=== PATIENT | female | born 1980 | race Caucasian/White ===

== ENCOUNTER 2020-01-16 00:26 | Emergency (ER) | payer OTHER, SELFPAY ==
--- NOTE | ~2020-01-16 | XR_ITS ---
EXAMINATION: XR chest 2V DATE: 01/16/2020 00:57 INDICATION: Shortness of breath. Right-sided chest pain. TECHNIQUE: Frontal and lateral views of the chest were obtained. COMPARISON: Chest 2 views 10/26/2012 FINDINGS: There is mild atelectasis in lingula. No pleural effusion or pneumothorax. The heart size i s normal. IMPRESSION: 1. Mild atelectasis in lingula. Reviewed, dictated and finalized at location A.
[2020-01-16 00:39] VITALS: BP 127/79; PULSE 80; RESP 20; TEMP 36.3; O2SAT 93
--- NOTE | 2020-01-16 00:43 | ECG_ITS ---
Measurements Intervals [place] Rate: 80 P: 72 CA: 144 QRS: 48 QRSD: 94 T: 47 QT: 387 QTc: 448 Interpretive Statements SINUS RHYTHM MINIMAL Q WAVES- HIGH LATERAL LEADS BASELINE ARTIFACT- I, II, III, AVR, AVL, AVF, V4-V6 BORDERLINE ECG Electronically Signed On 01-16-2020 7:42:15 CDT by Mihir Page D.O.
--- NOTE | 2020-01-16 01:06 | ED.SOB ---
HPI - SOB/Dyspnea General Chief Complaint: Shortness of Breath/Dyspnea Stated Complaint: Shortness of Breath Source: patient Mode of arrival: ambulatory Limitations: no limitations History of Present Illness HPI Narrative: Pt staes that she started having pain in the right side of her back/shoulder/chest 5 days ago. 2 days ago she developed some SOB. she denies fevers chills nausea or vomiting. Tonight when she tried to lay down the CP was worse MD elicited complaint: shortness of breath and chest pain Onset (ago): day(s) Timing: constant Severity: severe Exacerbating factors: lying flat Relieving factors: nothing Associated symptoms: chest pain and pain with inspiration Treatment prior to arrival: none Related Data Home Medications Medication Instructions Recorded Confirmed No Home Medications 01/16/20 01/16/20 Allergies Allergy/AdvReac Type Severity Reaction Status Date / Time No Known Allergies Verified 07/14/09 12:29 Review of Systems Constitutional: Constitutional: Reports no additional constitutional complaints Eyes: Eyes: Reports no additional eye complaints ENT: Denies dysphagia, Denies vertigo, Denies dizziness, Denies epistaxis, Denies nasal congestion and Denies sore throat Cardiovascular: Cardiovascular: Reports chest pain, Denies rapid heart rate, Denies radiating jaw, neck or arm pain and Denies slow heart rate Respiratory: Respiratory: Denies chest congestion, Denies cough, Reports dyspnea and Reports wheezing Gastrointestinal: Gastrointestinal: Denies abdominal pain, Denies bloating, Denies constipation, Denies heartburn, Denies diarrhea, Denies nausea and Denies vomiting Genitourinary: Genitourinary: Denies abnormal vaginal bleeding, Denies hematuria, Denies nocturia, Denies genital lesions, Denies dysuria, Denies pelvic pain, Denies flank pain, Denies urinary incontinence and Denies vaginal discharge Musculoskeletal: Musculoskeletal: Reports back pain, Denies myalgias, Denies arthralgias, Denies joint swelling and Denies muscle cramps Integumentary/Breasts: Skin/Breast: Reports system reviewed and no additional complaints, except as docu Neurologic: Reports system reviewed and no additional complaints, except as documented Psychiatric: Psychiatric: Reports no additional psychiatric complaints Endocrine: Endocrine: Reports no additional endocrine complaints Hematologic/Lymphatic: Hematologic/Lymphatic: Reports no additional hematologic/lymphatic complaints Allergic/Immunologic: Allergic/Immunologic: Reports no additional allergic/immunologic complaints [facility] Social History Social History (Updated 01/16/20 @ 01:16 by Siomara Deras MD) Smoking status: Current every day smoker Alcohol intake: current Substance use: current Substance use type: marijuana Exam Const: General: healthy appearing, no acute distress and alert Nutritional Appearance: well nourished Orientation/consciousness: patient oriented x3 HENMT: Head: normal to inspection Eyes: Conjunctivae: conjunctivae normal Pupils: Equal, round and reactive pupils present Neck: Neck: normal visual inspection and no lymphadenopathy Chest: Chest palpation & inspection: normal inspection of the chest Resp: Effort & Inspection: normal respiratory effort and tachypneic Auscultation: clear to auscultation bilaterally Cardio: Rate: regular rate Rhythm: regular rhythm GI: Inspection: non-distended GI Palp: Yes Soft to palpation, No Tenderness to palpation present (GI) and No Guarding due to palpation present (GI) Auscultation: normal bowel sounds : General: Yes no CVA tenderness Back/Spine/Pelvis: Back: no CVA tenderness Skin: General skin exam: normal color Neuro: General: patient oriented x3 and moves all extremities Speech: normal speech Extrem: General: normal to inspection Psych: Mental Status: mental status grossly normal Affect: Anxious affect present Thought content: Yes Normal thought c
[2020-01-16] MEDS: KETOROLAC 30 MG/ML VIAL (*BKC) IV PUSH (01:19)
[2020-01-16 01:20] VITALS: PULSE 84; RESP 20
[2020-01-16] MEDS: ALBUTEROL SULFATE (*SP) INHALER 8 PUFF INHALATION (01:20)
[2020-01-16 01:40] VITALS: PULSE 84; RESP 20
[2020-01-16 01:40] LABS: Basophils Absolute Auto 0.04 K/mm3 (0.00-0.10); Basophils Percent Auto 0.4 % (0.0-1.0); Eosinophils Absolute Auto 0.12 K/mm3 (0.02-0.50); Eosinophils Percent Auto 1.2 % (1.0-6.0); Hematocrit 40.2 % (35.0-49.0); Hemoglobin 13.9 g/dL (12.0-15.0); Immature Granulocyte Absolute 0.06 K/mm3 (0.00-0.00); Immature Granulocyte Percent A 0.6 % (0.0-0.0); Lymphocytes Absolute Auto 1.96 K/mm3 (1.10-4.50); Lymphocytes Percent Auto 18.9 % (18.0-42.0); Mean Corpuscular HGB Conc 34.6 g/dL (32.0-36.0); Mean Corpuscular Hemoglobin 32.7 pg (27.0-31.0); Mean Corpuscular Volume 94.6 fL (78.0-102.0); Mean Platelet Volume 9.9 fl (9.2-11.8); Monocytes Absolute Auto 0.63 K/mm3 (0.10-0.90); Monocytes Percent Auto 6.1 % (2.0-11.0); Neutrophils Absolute Auto 7.6 K/mm3 (1.7-7.2); Neutrophils Percent Auto 72.8 % (50.0-70.0); Platelet Count Result 256 K/mm3 (150-420); Red Blood Count 4.25 M/mm3 (4.20-5.40); Red Cell Distribution Width 11.9 % (11.6-14.4); White Blood Count 10.4 K/mm3 (4.8-10.8)
[2020-01-16 01:52] LABS: D Dimer 0.19 mg/L (0.19-0.50)
[2020-01-16 01:58] LABS: Alanine Aminotransferase 29 U/L (14-59); Albumin Level 3.9 g/dL (3.4-5.0); Alkaline Phosphatase 64 U/L (46-116); Anion Gap 15.7 mmol/L (7-16); Aspartate Amino Transferase 19 U/L (15-37); Bilirubin,Total 0.6 mg/dL (0.00-1.00); Blood Urea Nitrogen 10 mg/dL (7-18); Calcium 8.5 mg/dL (8.5-10.1); Carbon Dioxide 24 mmol/L (21-32); Chloride 101 mmol/L (98-108); Estimated CRCL calculation 88 ml/min; Estimated Glomerular Filt Rate > 60; Glucose 88 mg/dL (70-99); Osmolality Calculated 282 mOsm/kg (285-295); Potassium 3.7 mmol/L (3.5-5.1); Sodium 137 mmol/L (136-145); Total Protein 7.3 g/dL (6.4-8.2)
[2020-01-16 01:59] LABS: Troponin I < 0.02 ng/mL (0.00-0.056)
[2020-01-16 02:24] VITALS: BP 130/80; PULSE 84; RESP 20; TEMP 36.4; O2SAT 98
[2020-01-17 00:19] LABS: SARS-CoV-2 RNA PCR Negative
== END 2020-01-16 02:34 | disposition home or self-care (01) ==
PROVIDERS: Emergency Provider Emergency Medicine; PCP Family Medicine
DX: R07.89 Other chest pain (principal)
CPT/HCPCS: 36415; 71046; 80053; 84484; 85025; 85380; 87635; 93005; 94640; 96374; 99284; A9270; C9803; J1885; U0003

== ENCOUNTER 2020-08-02 13:23 | Emergency (ER) | payer OTHER, SELFPAY ==
[2020-08-02 13:30] VITALS: BP 113/78; PULSE 84; RESP 20; TEMP 36.3; O2SAT 97
[2020-08-02] MEDS: LIDOCAINE HCL 1% LOCAL INJ 20 ML VIAL (13:40)
[2020-08-02] MEDS: TETANUS,DIPHTHERIA,AC PERTUSSIS ADULT 0.5 ML (ADACEL) IM (13:45)
--- NOTE | 2020-08-02 13:59 | ED.WOUNDLAC ---
HPI - Wound/Laceration General Stated Complaint: L pinky lac Source: patient Mode of arrival: ambulatory Limitations: no limitations History of Present Illness HPI narrative: this is a 39-year-old female that presents after she smashed her finger earlier today causing a flap like right laceration to the fat pad of her 5th left finger has good range of motion and no numbness or tingling currently no bleeding. Onset (ago): hour(s) Extremity Location: Left: hand ( 5th finger distal end with laceration) Place: home Patient tetanus UTD: No Context: accidental Associated symptoms: pain Related Data Home Medications Medication Instructions Recorded Confirmed No Home Medications 01/16/20 01/16/20 Allergies Allergy/AdvReac Type Severity Reaction Status Date / Time No Known Allergies Verified 07/14/09 12:29 Review of Systems Review of Systems: All systems reviewed & are unremarkable except as noted in HPI and below PMFSH Past Medical History Medical History Patient denies medical problems Social History Social History Smoking status: Current every day smoker Alcohol intake: current Substance use: current Substance use type: marijuana Exam Const: General: no acute distress Orientation/consciousness: patient oriented x3 HENMT: Head: normal to inspection Eyes: Conjunctivae: conjunctivae normal Neck: Neck: normal visual inspection and no lymphadenopathy Chest: Chest palpation & inspection: normal inspection of the chest Cardio: Rate: regular rate Rhythm: regular rhythm GI: GI Palp: Yes Soft to palpation Percussion: Yes normal to percussion Back/Spine/Pelvis: Back: no CVA tenderness Skin: General skin exam: normal color Other: flap like laceration to the left 5th finger in the fat pad approximately 2cm in length Neuro: General: patient oriented x3 and moves all extremities Psych: Appearance: grossly normal Mental Status: mental status grossly normal Course Course Emergency Course: patient updated with her tetanus, finger she says she can move it with no numbness or tingling declined any x-rays, did laceration repair on the left distal 5th finger. Procedures Laceration Laceration 1: Date: 08/02/20 Time: 14:02 Site: hand ( Left 5th finger) Side (If applicable): left Size (cm): 2 Description: flap and irregular Depth: simple, single layer Local Anesthetic: lidocaine 1% Amount of anesthesia used (mL): 3 Pre-repair: wound explored and irrigated ====== Skin Level ====== Skin layer closed with: vicryl Size (cm): 5-0 Number of sutures: 5 Technique: simple, interrupted ====== Subcutaneous Layer ====== ====== Muscle Layer ====== ====== Tendon Layer ====== Critical Care Time Critical Care Time Critical Care Time: No Discharge Plan Discharge Clinical Impression: Laceration Patient Disposition: Home, Self-Care Condition: Stable Instructions: Antibiotic Form, Laceration (ED) Additional Instructions: Tylenol Motrin for pain, and follow-up with primary care physician in 1 week for suture removal. Prescriptions: No Action No Home Medications RF: 0 Follow-up/Referrals: Crow Fried MD [Primary Care Provider] - Time of Disposition: 14:04
[2020-08-02 14:11] VITALS: BP 120/78; PULSE 84; RESP 20; TEMP 36.6; O2SAT 97
== END 2020-08-02 14:15 | disposition home or self-care (01) ==
PROVIDERS: Emergency Provider Emergency Medicine; PCP Family Medicine
DX: S61.217A Laceration without foreign body of left little finger without damage to nail, initial encounter (principal); W45.8XXA Other foreign body or object entering through skin, initial encounter
CPT/HCPCS: 12001; 90471; 90715; 99282

== ENCOUNTER 2023-10-10 01:55 | Emergency (ER) | payer OTHER, SELFPAY ==
[2023-10-10] VITALS (7 sets, daily range): BP systolic 114–146; BP diastolic 66–106; PULSE 56–87; RESP 13–20; TEMP 36.4; O2SAT 90–97
--- NOTE | ~2023-10-10 | CT_ITS ---
Clinical Indication: Pain CT Scan of the Chest, Abdomen, and Pelvis with Contrast: Technique: Contiguous sections were acquired throughout the chest, abdomen, and pelvis after intraven ous administration of 100 cc of Omnipaque 350. Dose reduction technique was used on this scan by bradley lowery automated exposure control and iterative reconstruction technique. The dose-length product (DL P) was 738.83 mGy-cm. Findings: There is no evidence of any significant mediastinal, hilar or axillary lymphadenopathy. The mediastin al soft tissues and vascular structures appear normal. There is no evidence of pleural or pericardial effusion. 5 mm right lower lobe pulmonary nodule present (axial image 54). 4 mm right middle lobe pulmonary nod ule present (axial image 64). Several additional 4 to 5 mm right basilar pulmonary nodule present (ax ial image 80, 90, 96). 4 mm left basilar pulmonary nodule present (axial image 91). 4 mm left upper l obe pulmonary nodule present (axial image 66). The liver, spleen, pancreas, gallbladder, adrenals and kidneys are within normal limits. No evidence of aortic aneurysm. 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 No lymphadenopathy. No bowel obstruction or bowel wall thickening. There is no evidence to suggest acute appendicitis. Urinary bladder is unremarkable. No adnexal mass seen. No ascites. 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 Recommend vascular surgery and/or intervention al radiology consultation to assess for treatment. Multiple pulmonary nodules measuring up to 5 mm, as detailed above. According to Fleischner Society c rangel, for a low-risk patient, no further follow-up required. For a high-risk patient, consider 12 month follow-up CT. Reviewed, dictated and finalized at location . 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 Recommend vascular surge ry and/or interventional radiology consultation to assess for treatment. Multiple pulmonary nodules measuring up to 5 mm, as detailed above. According t o Fleischner Society criteria, for a low-risk patient, no further follow-up req uired. For a high-risk patient, consider 12 month follow-up CT.
--- NOTE | 2023-10-10 02:17 | ED.ABDPAIN ---
HPI - Abdominal Pain General Chief Complaint: Abdominal Pain Stated Complaint: Abdominal pain Time Seen by Provider: 10/10/23 02:09 Source: patient and family Mode of arrival: ambulatory Limitations: no limitations History of Present Illness HPI narrative: 42 years old white female came to the ED with her from home by private car complaining of severe left upper quadrant pain and left lower ribs pain started 1 week ago, gradually getting worse, associated with nausea. She denies any fever, chills, vomiting. Pain gets worse with movement, certain position and taking deep breath, nothing make it better. History of anxiety, depression, patient smokes cigarettes, marijuana and drink alcohol almost daily. Patient had a new puppy over the last few days with a lot of new physical activities including lifting and bending. No history of abdominal surgery. Related Data Home Medications Medication Instructions Recorded Confirmed alprazolam 1 mg tablet 1 mg PO DIRECTED 08/02/20 10/10/23 escitalopram oxalate 20 mg tablet 20 mg PO DAILY 10/10/23 10/10/23 Allergies Allergy/AdvReac Type Severity Reaction Status Date / Time No Known Allergies Verified 10/10/23 03:28 Review of Systems Review of Systems: All systems reviewed & are unremarkable except as noted in HPI and below PMFSH Past Medical History Medical History Patient denies medical problems Social History Social History Smoking status: Current every day smoker Alcohol intake: current Substance use: current Substance use type: marijuana Exam Narrative: General appearance: Well-developed, well-nourished In pain Skin: Normal color Head: Normocephalic, nontraumatic Eyes: Clear conjunctiva ENT: Oropharynx normal, ears normal, nose normal Neck: Supple, nontender Chest and respiratory: Airway patent, no respiratory distress, no accessory muscle use Heart: Regular rate/rhythm Abdomen: Soft, severe tenderness left upper quadrant and left lower ribs with light palpation, no bruises, no rash, no organomegaly, quiet bowel sounds Vascular: Normal peripheral pulses, normal capillary refill. Musculoskeletal: Normal range of motion, nontender back Neurologic: Alert and oriented ?3, EQUITY RESEARCH ANALYST is normal as tested, no gross motor deficit Course Vital Signs Vital signs: Vital Signs Temperature 36.4 C 10/10/23 01:55 Pulse Rate 87 10/10/23 01:55 Respiratory Rate 20 10/10/23 01:55 Blood Pressure 146/106 H 10/10/23 01:55 Pulse Oximetry 97 10/10/23 01:55 Oxygen Delivery Room Air 10/10/23 01:55 Temperature 36.4 C 10/10/23 01:55 Pulse Rate 87 10/10/23 01:55 Respiratory Rate 20 10/10/23 01:55 Blood Pressure 146/106 H 10/10/23 01:55 Pulse Oximetry 97 10/10/23 01:55 Oxygen Delivery Room Air 10/10/23 01:55 MDM - Abdominal Pain MDM Narrative Medical decision making narrative: patient presents with left upper quadrant and left lower chest pain started few days ago, got worse prior to arrival to the ED. 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 Usually the celiac and resume causing central pain, patient presented is questionable secondary to that aneurysm. Transferred to [facility], vascular surgery for further ev
[2023-10-10] MEDS: ONDANSETRON INJ 4 MG/2 ML VIAL IV PUSH ×2 (02:19→03:36)
[2023-10-10] MEDS: HYDROmorphone HCL INJ (*CRX) 2 MG/ML VIAL 0.5 MG IV PUSH ×3 (02:19→05:16)
[2023-10-10 02:20] LABS: Basophils Absolute Auto 0.04 K/mm3 (0.00-0.10); Basophils Percent Auto 0.5 % (0.0-1.0); Eosinophils Absolute Auto 0.17 K/mm3 (0.02-0.50); Eosinophils Percent Auto 2.2 % (1.0-6.0); Hematocrit 43.3 % (35.0-49.0); Hemoglobin 14.8 g/dL (12.0-15.0); Immature Granulocyte Absolute 0.03 K/mm3 (0.00-0.00); Immature Granulocyte Percent A 0.4 % (0.0-0.0); Lymphocytes Absolute Auto 3.49 K/mm3 (1.10-4.50); Lymphocytes Percent Auto 44.9 % (18.0-42.0); Mean Corpuscular HGB Conc 34.2 g/dL (32-36); Mean Corpuscular Volume 96.7 fL (78.0-102.0); Mean Platelet Volume 9.7 fl (9.2-11.8); Monocytes Absolute Auto 0.62 K/mm3 (0.10-0.90); Neutrophils Absolute Auto 3.42 K/mm3 (1.70-7.20); Platelet Count Result 261 K/mm3 (150-420); Red Blood Count 4.48 M/mm3 (4.20-5.40); Red Cell Distribution Width 12.1 % (11.6-14.4); White Blood Count 7.8 K/mm3 (4.8-10.8)
[2023-10-10] MEDS: SODIUM CHLORIDE 0.9% IV 1,000 ML 999 ML IV CONT (02:20)
[2023-10-10 02:30] LABS: INR 0.9; Partial Thromboplastin Time 23.4 Sec (23.9-30.70); Prothrombin Time 9.9 Seconds (9.50-12.1)
[2023-10-10 02:31] LABS: Alanine Aminotransferase 59 U/L (14-59); Alkaline Phosphatase 70 U/L (46-116); Anion Gap 11 mmol/L (4-12); Aspartate Amino Transferase 65 U/L (15-37); Bilirubin,Total 0.3 mg/dL (0.00-1.00); Blood Urea Nitrogen 15 mg/dL (7-18); Calcium 8.4 mg/dL (8.5-10.1); Carbon Dioxide 27 mmol/L (21-32); Chloride 100 mmol/L (98-108); Estimated Glomerular Filt Rate > 60; Glucose 103 mg/dL (70-99); Lipase 18 U/L (16-77); Osmolality Calculated 286 mOsm/kg (285-295); Potassium 3.9 mmol/L (3.5-5.1); Sodium 138 mmol/L (136-145); Total Protein 7.6 g/dL (6.4-8.2)
[2023-10-10] MEDS: KETOROLAC 30 MG/ML VIAL (*BKC) IV PUSH (03:53)
[2023-10-10 03:59] LABS: Bilirubin Urine Negative (Negative); Blood Urine 2+ (Negative); Color Urine Yellow (Yellow); Glucose Urine UA Negative (Negative); Ketones Urine 1+ (Negative); Leukocyte Esterase Ur Negative LEU/UL (Negative); Nitrate Urine Negative (Negative); Protein Urine Negative (Negative); Specific Grav Ur <= 1.005 (1.010-1.020); Urobilinogen Urine 0.2 mg/dL (0.2-1.0)
[2023-10-10 04:04] LABS: Pregnancy On Board Control Positive; Urine Pregnancy Test Negative
[2023-10-10 04:05] LABS: Add Urine Microscopic? YES; Amorphous Sediment Urine Few; Appearance Urine Sl Cloudy (Clear); Bacteria Urine 1+ /hpf; RBC Urine 0-2 /hpf (0-2); Squamous Epithelial Cell Urine Many /hpf (Few)
== END 2023-10-10 05:21 | disposition short-term general hospital (02) ==
PROVIDERS: Emergency Provider Emergency Medicine; PCP Family Medicine
DX: I72.8 Aneurysm of other specified arteries (principal); F41.8 Other specified anxiety disorders; F17.210 Nicotine dependence, cigarettes, uncomplicated; R10.12 Left upper quadrant pain
CPT/HCPCS: 36415; 71260; 74177; 80053; 81001; 81025; 83690; 85025; 85610; 85730; 96361; 96374; 96375; 96376; 99285; J1170; J1885; J2405; J7030; Q9967

== ENCOUNTER 2024-09-27 10:13 | Outpatient (CLI) | payer OTHER, SELFPAY ==
--- NOTE | ~2024-09-27 | CT_ITS ---
CLINICAL INDICATION: Abdominal pain COMPARISON: 10/10/2023. TECHNIQUE: An enhanced CT of the abdomen and pelvis was performed utilizing multislice spiral TechZel ue reconstructed at 5 mm slice thickness. Coronal and sagittal reconstructions were performed. This CT examination was performed utilizing dose reduction techniques. 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 Redemonstration of a 4.5 mm nodule within the right middle lobe (axial series, image 62) unchanged fr om prior (axial series, image 60) performed one year earlier. Redemonstration of a 5.3 mm nodule within the left lower lobe (axial series, image 86 unchanged from prior (axial series, image 91) performed one year earlier. Remaining pulmonary nodules have either decreased in size from prior or are less conspicuous overall. The lungs are clear The heart is of normal size, without pericardial effusion. Mediastinum: No pathologically enlarged or morphologically suspicious lymph nodes are identified within the medias tinum, bilateral axilla, within the soft tissues of the anterior chest wall. Soft tissues of the chest: Unremarkable. Bones of the chest: No acute fracture. No lytic or blastic lesions are identified. Liver: The liver enhances homogeneously and is not enlarged . Gallbladder and biliary system: The gallbladder is more minimally distended, but otherwise unremarkable. Pancreas: The pancreas enhances homogeneously, without ductal dilatation. Spleen: Spleen enhances homogeneously and is not enlarged. Kidneys: The bilateral kidneys enhance symmetrically without hydronephrosis or renal calculi. Adrenal glands: Unremarkable. Gastrointestinal tract: Small hiatal hernia is present. Appendix: The air-filled appendix is of normal caliber (axial series, images 178 through 192). Vasculature: Postoperative change is identified surrounding the proximal celiac artery. No recurrent or residual aneurysmal dilatation is appreciated. Examination was not performed as a CTA rendering visualization of the peripheral branches of the jorge ac axis limited. The superior mesenteric artery is patent, and without aneurysmal dilatation. The inferior mesenteric artery is diminutive, patent, and without aneurysmal dilatation. Lymph nodes: Scattered nonpathologically enlarged lymph nodes within the root of the mesentery and deep in the pel vis. Pelvic structures: The bladder is minimally distended and otherwise unremarkable. The uterus is anteverted and anteflexed, and otherwise unremarkable Body wall and musculoskeletal: Small fat-containing umbilical and paraumbilical hernia. No significant degenerative disease within the thoracic or lumbosacral spines IMPRESSION: Postoperative change within the mesenteric vasculature (as detailed above) without contrast enhanced evidence of residual or recurrent dilatation. 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 Consultation with thoracic surgery may be performed. Stable bilateral pulmonary nodules for which follow-up as per Fleischner guidelines is recommended (r epeat noncontrast chest CT in one years' time to confirm resolution or stability). Reviewed, dictated and finalized at location A. IMPRESSION: Postoperative change within the mesenteric vasculature (as detailed above) with out contrast enhanced evidence of residual or recurrent dilatation. 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 Consultati on with thoracic surgery may be performed. Stable bilateral pulmonary nodules for which follow-up as per Fleischner guidel shashank is recommended (repeat noncontrast chest CT in one years' time to confirm resolution or stability).
[2024-09-27 10:28] LABS: Basophils Absolute Auto 0.05 K/mm3 (0.00-0.10); Basophils Percent Auto 0.6 % (0.0-1.0); Eosinophils Absolute Auto 0.07 K/mm3 (0.02-0.50); Eosinophils Percent Auto 0.8 % (1.0-6.0); Hematocrit 41.9 % (35.0-49.0); Hemoglobin 13.8 g/dL (12.0-15.0); Immature Granulocyte Absolute 0.03 K/mm3 (0.00-0.00); Immature Granulocyte Percent A 0.4 % (0.0-0.0); Lymphocytes Absolute Auto 2.55 K/mm3 (1.10-4.50); Lymphocytes Percent Auto 29.9 % (18.0-42.0); Mean Corpuscular HGB Conc 32.9 g/dL (32-36); Mean Corpuscular Hemoglobin 31.9 pg (27.0-31.0); Mean Corpuscular Volume 96.8 fL (78.0-102.0); Mean Platelet Volume 9.1 fl (9.2-11.8); Monocytes Absolute Auto 0.55 K/mm3 (0.10-0.90); Monocytes Percent Auto 6.4 % (2.0-11.0); Neutrophils Absolute Auto 5.29 K/mm3 (1.70-7.20); Neutrophils Percent Auto 61.9 % (50.0-70.0); Platelet Count Result 283 K/mm3 (150-420); Red Blood Count 4.33 M/mm3 (4.20-5.40); Red Cell Distribution Width 12.2 % (11.6-14.4); White Blood Count 8.5 K/mm3 (4.8-10.8)
[2024-09-27 10:49] LABS: Alanine Aminotransferase 33 U/L (14-59); Alkaline Phosphatase 92 U/L (46-116); Amylase 23 U/L (25-115); Anion Gap 8 mmol/L (4-12); Aspartate Amino Transferase 17 U/L (15-37); Bilirubin Direct 0.2 mg/dL (0-0.2); Bilirubin,Total 0.6 mg/dL (0.00-1.00); Blood Urea Nitrogen 8 mg/dL (7-18); Calcium 8.8 mg/dL (8.5-10.1); Carbon Dioxide 32 mmol/L (21-32); Chloride 101 mmol/L (98-108); Estimated Glomerular Filt Rate > 60; Glucose 96 mg/dL (70-99); Lipase 24 U/L (16-77); Osmolality Calculated 290 mOsm/kg (285-295); Potassium 4.1 mmol/L (3.5-5.1); Sodium 141 mmol/L (136-145); Total Protein 7.8 g/dL (6.4-8.2)
--- OUTSIDE RECORDS SUMMARY | 2024-09-27 10:59 | XMS_ITS | Clinical Summary ---
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 Gender Identity Not on file Sexual Orientation Not on file Plan of Treatment Health Maintenance Due Date Last Done Comments Cervical Cancer Screening Pa p Smear (Age 30 to 64) Every 3 Years 1982 Annual Physical 1985 Hepatitis C 2000 DTaP, Tdap and Td Vaccines ( 1 - Tdap) 2001 Hepatitis B Vaccines (1 of 3 - 19+ 3-dose series) 2001 Cervical Cancer Screening Pa p with HPV Testing (Age 30 to 64) Every 5 Years 2012 Cervical Cancer Screening with HPV 2012 Mammogram Screening 2022 COVID-19 Vaccine (2023-2 5 season) 2024 HPV Vaccines Aged Out No longer eligi ble based on patient's age to complete this topic Meningococcal B Vaccine Aged Out No l onger eligible based on patient's age to complete this topic Meningococcal Vaccine Aged Out No alvino lukasz eligible based on patient's age to complete this topic Pneumococcal Vaccine: Pediat rics (0 to 5 Years) and At-Risk Patients (6 to 64 Years) Aged Out No longer eligible b ased on patient's age to complete this topic RSV Immunizations Under 20 Months Aged Out No longer eligible based on patient's age to complete this topic
--- OUTSIDE RECORDS SUMMARY | 2024-09-27 10:59 | XMS_ITS | Clinical Summary ---
Author Organization [facility] Address [address] [place] [address] Care Team Providers Care Armored Car Guard And Driver Name Role Phone Unavailable Primary Care Provider Unavailabl e Source Comments [facility],non-owned Affiliates and Associated Physician Practices is amultiple site organization consisting of ambulatory clinics and hospital sitesin [place], [place], [place] and [place]. This disclosure is being madepursuant to the Care Everywhere program and may not contain all information available regarding this patient. Last updated 18.[facility] Social History Tobacco Use Types Packs/Day Years Used Date Smoking Tobacco: Never Assessed Sex and Gender Information Value Date Recorded Sex Assigned at Not on file Gender Identity Not on file Sexual Orientation Not on file Plan of Treatment Health Maintenance Due Date Last Done Comments LIPID TESTING 1982 MAMMOGRAM 1982 PAP SMEAR 1982 HIV SCREENING 1997 HEPATITIS C SCREENING 10/29/2000 DTAP/TDAP/TD VACCINES (1 - Tdap) 2001 HEPATITIS B VACCINE (1 of 3 - 19+ 3-dose series) 2001 COVID-19 VACCINE (2023-2 5 season) 2024 DEPRESSION SCREENING 06/27/2024 INFLUENZA VACCINE (Season Ended) 2025 ZOSTER VACCINE (1 of 2) 2032 HIB VACCINE Aged Out No longer eligi ble based on patient's age to complete this topic HPV VACCINE Aged Out No longer eligi ble based on patient's age to complete this topic MENINGOCOCCAL (Group B) VACC INE SHARED DECISION-MAKING Aged Out No longer eligibl e based on patient's age to complete this topic MENINGOCOCCAL GROUPS A/C/Y/W VACCINE Aged Out No longer eligible b ased on patient's age to complete this topic PNEUMOCOCCAL VACCINE Aged Out No long er eligible based on patient's age to complete this topic
--- OUTSIDE RECORDS SUMMARY | 2024-09-27 10:59 | XMS_ITS | Clinical Summary ---
Author Organization [facility] Address [address] [place] [address] Care Team Providers Care Flight Crew Time Clerk Name Role Phone Crow Fried MD Primary Care Provide r Miki Bronson MD Unavailable [phone] Allergies No known active allergies Medications ALPRAZolam (XANAX) 1 mg tablet Take 1 tablet (1 mg total) by mouth nightly as needed for anxiety Active escitalopram (LEXAPRO) 20 mg tablet Take 1 tablet (20 mg total) by mouth daily Active acetaminophen 500 mg capsuleIndicati ons:Fever,Pain Take 2 capsules (1,000 mg total) by mouth every 6 (six) hours 4 Active aspirin 325 mg enteric coated tablet Take 1 tablet (325 mg total) by mouth daily 30 tablet 2 4 10/14/19 25 Active cyclobenzaprine (FLEXERIL) 10 mg tablet Take 1 tablet (10 mg total) by mouth 3 (three) times a day as needed for muscle spasms 30 tablet 4 Active Additional Information Patient not taking.Reported on 11/16/2023 oxyCODONE (ROXICODONE) 10 mg tabletIndicatio ns:Pain Take 1 tablet (10 mg total) by mouth every 4 (four) hours as needed for pain 25 tablet 4 Active Additional Information Patient not taking.Reported on 11/16/2023 Active Problems Problem Noted Date Diagnosed Date Hallucinations 10/14/2023 Assessment & Plan (10/14/2023 8:03 AM CDT): Patient with hallucinations overnight on 10/12. 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 Will re-eval mental status later before considering discharge Anxiety 10/11/2023 Assessment & Plan (10/14/2023 6:23 AM CDT): Hx of anxiety/depression on home Lexapro and xanax. - Resume home regimen Acute postoperative pain of abdomen 10/10/2023 Assessment & Plan (10/14/2023 8:01 AM CDT): Patient presented to the hospital with abdominal pain, diagnosed with celiac artery aneurysm as below. S/p repair. 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 CT with 3.7cm celiac artery aneurysm. - OR 10/10 for Shay hepatis exploration, resection of celiac artery aneurysm, transposition of the splenic artery onto the celiac artery, transposition of the common hepatic artery onto the splenic artery - NGT removed on 10/12. BM x2. Cont bowel reg and encourage OOB - Pain control as above but better controlled today - PT/OT cleared for home -switch ASA to oral - Daily CMP. Pulmonary nodule 10/10/2023 Assessment & Plan (10/14/2023 6:25 AM CDT): CT scan with incidental finding of pulmonary nodules - Rec follow up CT in 12 months Social History Tobacco Use Types Packs/Day Years Used Date Smoking Tobacco: Every Day Cigarettes Smokeless Tobacco: Never Tobacco Cessation:Ready to Q uit: Not Asked; Counseling Given: Not Answered Personal Safety Answer Date Recorded Have you ever been in or are you currently in a harmful physical or emotional relationship or is someone making you feel afraid or unsafe? Denies 10/11/2023 Comments Unknown Sex and Gender Information Value Date Recorded Sex Assigned at Not on file Legal Sex Female 4:06 AM CDT Gender Identity Not on file Sexual Orientation Not on file Obstetrics History Last Filed Vital Signs Vital Sign Reading Time Taken Comments Blood Pressure 119/85 11/16/2023 8:14 AM CDT Pulse 80 11/16/2023 8:14 AM CDT Temperature 36.8 C (98.3 F) 11/16/2023 8:14 AM CDT Respiratory Rate 20 10/14/2023 11:39 AM CDT Oxygen Saturation 97% 11/16/2023 8:14 AM CDT Inhaled Oxygen Concentration - - Weight 86.2 kg (190 lb) 11/16/2023 8:14 AM CDT Height 162.6 cm (5' 4 ) 10/10/2023 4:45 PM CDT Body Mass Index 32.61 10/10/2023 4:45 PM CDT Plan of Treatment Health Maintenance Due Date Last Done Comments Breast Cancer Screening-Mammogram 1982 Cervical Cancer Screening 1982 Depression Screening 1982 Hepatitis C Screening 1982 Varicella Vaccines (1 of 2 - 13+ 2-dose series) 11/04/1995 Regular Well Visit/Exam 18-64 2000 Pneumococcal vaccine <65 (1 of 2 - PCV) 2001 Influenza Vaccine (Season Ended) 2025 DTaP/Tdap/Td Vaccine (7 - Td or Tdap) 08/02/2030 08/02/2020, 09/27/1996, 10/30/1987, Additional history exists Hepatitis B Screening Completed 10/01/1999 , 04/30/1999, 04/02/1999 HPV Vaccines Aged Out No longer eligi ble based on patient's age to complete this topic Insurance [employer] OPEN ACCESS [employer] OPEN ACC[employer] Advance Directives For more information, please contact: [phone] * Full Code (Latest Code Status on File) Date Activated Date Inactivated Comments 10/10/2023 5:26 PM 10/14/2023 8:16 PM Care Teams Flight Crew Time Clerk Relationship Specialty Start Date End Date Crow Fried MD [address] [place] [address] PCP - General Family Medicine 10/10/23 Miki Bronson MD [id number] [place] [address] Surgeon Vascular Surgery 10/14/23
--- OUTSIDE RECORDS SUMMARY | 2024-09-27 10:59 | XMS_ITS | Referral Summary ---
Author Organization [facility] Address [address] [place] [address] Care Team Providers Care Rivet Thrower Name Role Phone Crow Fried MD Primary Care Provide r Miki Bronson MD Unavailable [phone] Allergies No known active allergies Medications ALPRAZolam [...] epidural to 1mg, pain remained controlled -dc RUNWAY MODEL -patient more oriented this morning but requesting [...] below. S/p repair. -pain team following -dc RUNWAY MODEL and epidural today -now able to take [...] on file Sexual Orientation Not on file Last Filed Vital Signs Vital Sign Reading [...] 10/10/2023 4:45 PM CDT Plan of Treatment Not on file Insurance [employer] OPEN ACCESS [employer] Advance Directives For more information, please contact: [phone] * Full Code (Latest Code Status on File) Date Activated Date Inactivated Comments 10/10/2023 5:26 PM 10/14/2023 8:16 PM Care Teams Rivet Thrower Relationship Specialty Start Date End Date Crow Fried MD [address] [place] [address] PCP - General Family Medicine 10/10/23 Miki Bronson MD [id number] [place] [address] Surgeon Vascular Surgery 10/14/23
== END 2024-09-27 10:14 | disposition home or self-care (01) ==
LOC: CHSLAB 10:15
PROVIDERS: PCP Family Medicine; Visit Provider Nurse Practitioner Family
DX: I72.8 Aneurysm of other specified arteries (principal); R10.11 Right upper quadrant pain; Z98.890 Other specified postprocedural states; R91.8 Other nonspecific abnormal finding of lung field
CPT/HCPCS: 36415; 71260; 74177; 80053; 82150; 82248; 83690; 85025; Q9967

== ENCOUNTER 2024-10-01 08:55 | Outpatient (CLI) | payer OTHER, SELFPAY ==
--- OUTSIDE RECORDS SUMMARY | 2024-10-01 09:35 | XMS_ITS | Referral Summary ---
Author Organization [facility] Address [address] [place] [address] Care Team Providers Care Irish Moss Gatherer Name Role Phone Crow Fried MD Primary Care Provide r Miki Bronson MD Unavailable [phone] Allergies No known active allergies Medications ALPRAZolam [...] epidural to 1mg, pain remained controlled -dc VALIDATION SOFTWARE FACILITATOR -patient more oriented this morning but requesting [...] below. S/p repair. -pain team following -dc VALIDATION SOFTWARE FACILITATOR and epidural today -now able to take [...] Plan of Treatment Not on file Insurance [employer] OPEN ACCESS [employer] OPEN ACCESS Advance Directives For more information, please contact: [phone] * Full Code (Latest Code Status on File) Date Activated Date Inactivated Comments 10/10/2023 5:26 PM 10/14/2023 8:16 PM Care Teams Irish Moss Gatherer Relationship Specialty Start Date End Date Crow Fried MD [address] [place] [address] PCP - General Family Medicine 10/10/23 Miki Bronson MD [address] [place] [address] Surgeon Vascular Surgery 10/14/23
--- OUTSIDE RECORDS SUMMARY | 2024-10-01 09:35 | XMS_ITS | Clinical Summary ---
Author Organization [facility] Address [address] [place] [address] Care Team Providers Care Service Station Manager Name Role Phone Crow Fried MD Primary Care Provide r Miki Bronson MD Unavailable [phone] Allergies No known active allergies Medications ALPRAZolam [...] epidural to 1mg, pain remained controlled -dc HOT TOP LINER -patient more oriented this morning but requesting [...] below. S/p repair. -pain team following -dc HOT TOP LINER and epidural today -now able to take [...] patient's age to complete this topic Insurance [employer] OPEN ACCESS [employer] OPEN ACCESS Advance Directives For more information, please contact: [phone] * Full Code (Latest Code Status on File) Date Activated Date Inactivated Comments 10/10/2023 5:26 PM 10/14/2023 8:16 PM Care Teams Service Station Manager Relationship Specialty Start Date End Date Crow Fried MD [address] [place] [address] PCP - General Family Medicine 10/10/23 Miki Bronson MD [address] [place] [address] Surgeon Vascular Surgery 10/14/23
--- OUTSIDE RECORDS SUMMARY | 2024-10-01 09:35 | XMS_ITS | Clinical Summary ---
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
--- OUTSIDE RECORDS SUMMARY | 2024-10-01 09:35 | XMS_ITS | Clinical Summary ---
Author Organization [facility] [employer] Address [address] [place] [address] Care Team Providers Care Manager Strategy & Account Name Role Phone Unavailable Primary Care Provider Unavailabl e Source Comments [facility],non-owned Affiliates and Associated Physician Practices is amultiple site organization consisting of ambulatory clinics and hospital sitesin [place], [place], [place] and [place]. This disclosure is being madepursuant to the Care Everywhere program and may not contain all information available regarding this patient. Last updated 18.[facility] [employer] Social History Tobacco Use Types Packs/Day Years [...]
[2024-10-04 15:58] LABS: H pylori, Urea Breath NOT DETECTED (NOT DETECTED)
== END 2024-10-01 08:56 | disposition home or self-care (01) ==
LOC: CHSIMG 08:57 → CHSLAB 09:33
PROVIDERS: PCP Family Medicine; Visit Provider Nurse Practitioner Family
DX: R10.11 Right upper quadrant pain (principal)
CPT/HCPCS: 83013

== ENCOUNTER 2024-10-08 09:52 | Outpatient (CLI) | payer OTHER, SELFPAY ==
--- NOTE | ~2024-10-08 | NM_ITS ---
EXAMINATION: NM hepatobiliary w pharm DATE: 10/08/2024 12:17 INDICATION: Right upper quadrant abdominal pain COMPARISON: None. TECHNIQUE: 6.0 mCi Tc-99m mebrofenin (Choletec) was administered intravenously. Scintigraphic images of the abdomen were obtained for one hour. 1.7 mcg sincalide (Kinevac) was administered by slow intr avenous infusion, and imaging was continued for 30 minutes. Gallbladder ejection fraction was calcula jose angel by the technologist. FINDINGS: There is normal clearance of radiotracer from the blood pool. There is homogeneous tracer uptake by t he liver. Activity progresses to the gallbladder and bowel. The gallbladder ejection fraction (GBEF) is 24% (normal 10-90%, but most patient with gallbladder dysfunction have GBEF < 35% which does over lap with the normal range). IMPRESSION: 1. Gallbladder ejection fraction is at the lower limits of normal. This could be normal but is also within the range of overlap with gallbladder dysfunction or chronic cholecystitis in the appropriate clinical setting. Reviewed, dictated and finalized at location A.
--- OUTSIDE RECORDS SUMMARY | 2024-10-08 10:45 | XMS_ITS | Clinical Summary ---
Author Organization [facility] Address [address] [place] [address] Care Team Providers Care Reproductive Endocrinologist Name Role Phone Unavailable Primary Care Provider Unavailabl e Social History Tobacco Use Types Packs/Day Years Used Date Smoking Tobacco: Never Assessed Comments Unknown Sex and Gender Information Value Date Recorded Sex Assigned at Not on file Legal Sex Female 5:47 PM DOCK OPERATOR Gender Identity Not on file Sexual [...] 5 Years) and At-Risk Patients (6 to 49 Years) Aged Out No longer eligible b ased on patient's age to complete this topic RSV Immunizations Under 20 Months Aged Out No longer eligible based on patient's age to complete this topic
--- OUTSIDE RECORDS SUMMARY | 2024-10-08 10:45 | XMS_ITS | Clinical Summary ---
Author Organization [facility] Address [address] [place] [address] Care Team Providers Care Gelatin Plant Supervisor Name Role Phone Unavailable Primary Care Provider Unavailabl e Source Comments [facility],non-owned Affiliates and Associated Physician Practices is amultiple site organization consisting of ambulatory clinics and hospital sitesin [place], [place], [place] and [place]. This disclosure is being madepursuant to the Care Everywhere program and may not contain all information available regarding this patient. Last updated 18.[facility] [employer] Social History Tobacco Use Types Packs/Day Years Used Date Smoking Tobacco: Never Assessed Comments Unknown Sex and Gender Information Value Date Recorded Sex Assigned at Not on file Legal Sex Female 7:57 AM NURSING CLERK Gender Identity Not on file Sexual Orientation Not on file Plan of Treatment Health Maintenance Due Date Last Done Comments LIPID TESTING 1982 MAMMOGRAM 1982 PAP SMEAR 1982 HIV SCREENING 1997 HEPATITIS C SCREENING 10/29/2000 DTAP/TDAP/TD VACCINES (1 - Tdap) 2001 HEPATITIS B VACCINE (1 of 3 - 19+ 3-dose series) 2001 COVID-19 VACCINE ( - 2023-2 5 season) 2024 DEPRESSION SCREENING 06/27/2024 INFLUENZA [...]
== END 2024-10-08 09:53 | disposition home or self-care (01) ==
LOC: CHSIMG 09:53
PROVIDERS: PCP Family Medicine; Visit Provider Nurse Practitioner Family
DX: R10.11 Right upper quadrant pain (principal)
CPT/HCPCS: 78227; A9537; J2805

== ENCOUNTER 2024-10-09 07:04 | Emergency (ER) | payer OTHER, SELFPAY ==
--- NOTE | ~2024-10-09 | CT_ITS ---
Clinical Indication: Pain CT Scan of the Chest with Contrast: Technique: Contiguous sections were acquired throughout the chest after intravenous administration of 100 cc of Omnipaque 350. Dose reduction technique was used on this scan by utilizing automated expos ure control and iterative reconstruction technique. The dose-length product (DLP) was 392.66 mGy-cm. COMPARISON: 09/27/2024 Findings: There is no evidence of any significant mediastinal, hilar or axillary lymphadenopathy. There is no f illing defect in the pulmonary arterial tree to suggest pulmonary embolus. There is no evidence of ao rtic dissection or aneurysm. There is no evidence of pleural or pericardial effusion. Subcentimeter pulmonary nodules in the right middle and lower lobes are unchanged. No acute pulmonary abnormality evident. Images through the upper abdomen reveal no abnormalities. Impression: No evidence of pulmonary embolus, aortic dissection, or aortic aneurysm. Stable subcentimeter pulmonary nodules, as above. Reviewed, dictated and finalized at [facility]. Impression: No evidence of pulmonary embolus, aortic dissection, or aortic aneurysm. Stable subcentimeter pulmonary nodules, as above.
--- NOTE | ~2024-10-09 | US_ITS ---
Limited Abdominal Sonogram: Real-time sonographic imaging of the right upper quadrant was performed. Clinical History: pain Findings: The liver appears normal with no evidence of mass lesion or bile duct dilatation. Main por ike vein demonstrates normal direction of flow. The gallbladder is well distended, and appears normal with no evidence of gallstone or wall thickening. The common bile duct measures 4 mm. The visualize d pancreas, aorta, and IVC are unremarkable. Impression: No significant abnormality seen. Reviewed, dictated and finalized at location M. Impression: No significant abnormality seen.
--- OUTSIDE RECORDS SUMMARY | 2024-10-09 07:07 | XMS_ITS | Clinical Summary ---
Author Organization [facility] Address [address] [place] [address] Care Team Providers Care Advanced Clinical Specialist Name Role Phone Crow Fried MD Primary Care Provide r Miki Bronson MD Unavailable [phone] Allergies No known active allergies Medications ALPRAZolam [...] epidural to 1mg, pain remained controlled -dc EVENT MARKETING SPECIALIST -patient more oriented this morning but requesting [...] below. S/p repair. -pain team following -dc EVENT MARKETING SPECIALIST and epidural today -now able to take [...] patient's age to complete this topic Insurance [employer] OPEN ACCESS [employer] OPEN ACCESS Advance Directives For more information, please contact: [phone] * Full Code (Latest Code Status on File) Date Activated Date Inactivated Comments 10/10/2023 5:26 PM 10/14/2023 8:16 PM Care Teams Advanced Clinical Specialist Relationship Specialty Start Date End Date Crow Fried MD [address] [place] [address] PCP - General Family Medicine 10/10/23 Miki Bronson MD [address] [place] [address] Surgeon Vascular Surgery 10/14/23
--- OUTSIDE RECORDS SUMMARY | 2024-10-09 07:07 | XMS_ITS | Referral Summary ---
Author Organization [facility] Address [address] [place] [address] Care Team Providers Care Music Engineer Name Role Phone Crow Fried MD Primary Care Provide r Miki Bronson MD Unavailable [phone] Allergies No known active allergies Medications ALPRAZolam [...] epidural to 1mg, pain remained controlled -dc PERCUSSION INSTRUCTOR -patient more oriented this morning but requesting [...] below. S/p repair. -pain team following -dc PERCUSSION INSTRUCTOR and epidural today -now able to take [...] Plan of Treatment Not on file Insurance [employer] OPEN ACCESS [employer] OPEN ACCESS Advance Directives For more information, please contact: [phone] * Full Code (Latest Code Status on File) Date Activated Date Inactivated Comments 10/10/2023 5:26 PM 10/14/2023 8:16 PM Care Teams Music Engineer Relationship Specialty Start Date End Date Crow Fried MD [address] [place] [address] PCP - General Family Medicine 10/10/23 Miki Bronson MD [address] [place] [address] Surgeon Vascular Surgery 10/14/23
--- OUTSIDE RECORDS SUMMARY | 2024-10-09 07:07 | XMS_ITS | Clinical Summary ---
Author Organization [facility] Address [address] [place] [address] Care Team Providers Care Burner Shaft Name Role Phone Unavailable Primary Care Provider Unavailabl e Source Comments [facility],non-owned Affiliates and Associated Physician Practices is amultiple site organization consisting of ambulatory clinics and hospital sitesin [place], [place], [place] and [place]. This disclosure is being madepursuant to the Care Everywhere program and may not contain all information available regarding this patient. Last updated 18.[facility] [employer] Social History Tobacco Use Types Packs/Day Years Used Date Smoking Tobacco: Never Assessed Comments Unknown Sex and Gender Information Value Date Recorded Sex Assigned at Not on file Legal Sex Female 7:57 AM CRUSHER FOREMAN Gender Identity Not on file Sexual Orientation [...]
--- OUTSIDE RECORDS SUMMARY | 2024-10-09 07:07 | XMS_ITS | Clinical Summary ---
Author Organization [facility] Address [address] [place] [address] Care Team Providers Care Freight Manager Name Role Phone Unavailable Primary Care Provider Unavailabl e Social History Tobacco Use Types Packs/Day Years Used Date Smoking Tobacco: Never Assessed Comments Unknown Sex and Gender Information Value Date Recorded Sex Assigned at Not on file Legal Sex Female 5:47 PM TEST DEVELOPMENT ENGINEER Gender Identity Not on file Sexual Orientation [...]
[2024-10-09 07:31] VITALS: BP 140/106; PULSE 96; RESP 18; TEMP 36.9; O2SAT 94
--- NOTE | 2024-10-09 07:31 | ED.GENADULT ---
HPI - General Adult General Chief complaint: Abdominal Pain Stated complaint: gallbladder? Time Seen by Provider: 10/09/24 07:17 History of Present Illness HPI narrative: Patient 43-year-old female who presents emergency department with chief complaint of abdominal. Patient reports she has pain the right upper quadrant reports that she has been seen in the emergency department had CT scans and then was set up for a HIDA scan the patient states she had a HIDA scan that showed there is possibility gallbladder dysfunction the patient states she has continued to have severe pain in the right upper quadrant reports that the tramadol that she was prescribed is not helping Related Data Home Medications ?Medication ?Instructions ?Recorded ?Confirmed ?Last Taken ?Type alprazolam 1 mg tablet 1 mg PO DIRECTED 08/02/20 10/10/23 Unknown History escitalopram oxalate 20 mg tablet 20 mg PO DAILY 10/10/23 10/10/23 Unknown History Allergies Allergy/AdvReac Type Severity Reaction Status Date / Time No Known Allergies Allergy Verified 10/09/24 07:39 Review of Systems Review of Systems: A 10 system review of systems was completed on the patient and is negative except for what is stated in the HPI. Nursing and ancillary documentation was reviewed. [facility] Past Medical History Medical History Patient denies medical problems Social History Social History Smoking status: Current every day smoker Alcohol intake: current Substance use: current Substance use type: marijuana Exam Narrative: GENERAL: Well-appearing, well-nourished, and in no acute distress. HEAD: Normocephalic, atraumatic. EYES: PERRLA and EOMI. ENT: Nares clear, no rhinorrhea or epistaxis. Mucous membranes moist. NECK: Supple. CHEST: Clear to auscultation. No respiratory distress. HEART: Regular rate and rhythm. No murmur heard. Normal peripheral pulses. ABDOMEN: Soft, tenderness to palpation the right upper quadrant, nondistended, normal active bowel sounds. EXTREMITIES: Normal range of motion. No edema. SKIN: Warm, dry, no rash. NEURO: No focal deficits. Alert and oriented x3. PSYCH: Normal mood and affect. Course Vital Signs Vital signs: Vital Signs Temperature 36.9 C 10/09/24 07:31 Pulse Rate 96 10/09/24 07:31 Respiratory Rate 18 10/09/24 07:31 Blood Pressure 140/106 H 10/09/24 07:31 Pulse Oximetry 94 10/09/24 07:31 Oxygen Delivery Room Air 10/09/24 07:31 Temperature 36.9 C 10/09/24 07:47 Pulse Rate 60 10/09/24 10:32 Respiratory Rate 20 10/09/24 10:32 Blood Pressure 126/79 10/09/24 10:32 Pulse Oximetry 100 10/09/24 10:32 Oxygen Delivery Room Air 10/09/24 07:31 Medical Decision Making MDM Narrative Medical decision making narrative: Differential diagnosis includes cholecystitis, cholelithiasis, biliary colic, pancreatitis, pulmonary embolism, Ultrasound was obtained as the patient had a recent HIDA scan that was questionable ultrasound showed no acute abnormality admission CBC is normal CMP showed no acute abnormality on lipase was normal CTA of the chest was obtained that showed no evidence of pulmonary embolism Vital Signs Vital Signs: Vital Signs Temperature 36.9 C 10/09/24 07:31 Pulse Rate 96 10/09/24 07:31 Respiratory Rate 18 10/09/24 07:31 Blood Pressure 140/106 H 10/09/24 07:31 Pulse Oximetry 94 10/09/24 07:31 Oxygen Delivery Room Air 10/09/24 07:31 Temperature 36.9 C 10/09/24 07:47 Pulse Rate 60 10/09/24 10:32 Respiratory Rate 20 10/09/24 10:32 Blood Pressure 126/79 10/09/24 10:32 Pulse Oximetry 100 10/09/24 10:32 Oxygen Delivery Room Air 10/09/24 07:31 Lab Data 10/09/24 07:39 10/09/24 07:39 Labs: Lab Results 10/09/24 Range/Units 07:39 WBC 6.5 (4.5-10.0) K/mm3 RBC 4.37 (4.2-5.4) M/mm3 Hgb 14.3 (12.0-15.0) g/dL Hct 43.1 (37.0-47.0) % MCV 98.6 (80-100) fl MCH 32.7 (26-34) pg MCHC 33.2 (32-36) g/dl RDW 12.2 (11.5-14.5) % Plt Count 247 (150-375) k/mm3 MPV 9.5 (7.4-10.4) fl Immature Gran % (Auto) 0.2 (0-0.5) % Neut % (Auto) 52.9 (45.5-73.1) % Lymph % (Auto) 36.4 (18.3-44.2) % [place] % (Auto) 7.7 (2.6-8.5) % Eos % (Auto) 2.3 (0-4.4) % Baso % (Auto) 0.5 (0.2-1.2) % Lymph # (Auto) 2.36 (0.9-3.2) K/mm3 [place] # (Auto) 0.5 (0.1-0.6) K/mm3 Eos # (Auto) 0.2 (0-0.3) K/mm3 Baso # (Auto) 0.0 (0.0-0.1) K/mm3 Abs Immat Gran (auto) 0.01 (0.00-0.031) K/mm3 Absolute Neuts (auto) 3.4 (1.3-6.7) K/mm3 Absolute Nucleated RBC 0.000 (0.0-0.012) K/mm3 Nucleated RBC % 0.0 (0.0-0.2) % Sodium 139 (137-145) mmol/L Potassium 3.7 (3.4-5.0) mmol/L Chloride 100 (98-107) mmol/L Carbon Dioxide 29 (22-30) mmol/L Anion Gap 10 (4-12) mmol/L BUN 6 L (7-17) mg/dL Creatinine 0.66 L (0.7-1.0) mg/dL Estim Creat Clear Calc 102 ml/min Estimated GFR > 60 (59 - ) Glucose 110 (65-110) mg/dL Calcium 9.3 (8.4-10.2) mg/dL Total Bilirubin 0.9 (0.2-1.3) mg/dL AST 31 (14-36) U/L ALT 25 (6-35) U/L Alkaline Phosphatase 77 (38-126) U/L Troponin I < 0.012 (0.000-0.034) ng/mL Total Protein 8.0 (6.3-8.2) g/dL Albumin 4.8 (3.5-5.1) g/dL Lipase 31 (23-300) U/L Urine Color Dark yellow (Yellow) Urine Appearance Cloudy H (Clear) Urine pH 6.0 (5.0-9.0) Ur Specific [place] 1.020 (1.001-1.035) Urine Protein Trace (Negative) mg/dL Urine Glucose (UA) Negative (Negative) mg/dL Urine Ketones 4+ H (Negative) mg/dL Ur Blood (Man) 3+ H (Negative) Urine Nitrate Negative (Negative) Urine Bilirubin Negative (Negative) Urine Urobilinogen 1.0 (<2.0) mg/dL Add Ur Microanalysis Reviewed Leukocyte Esterase Rfl Negative (Negative) CRISTÓBAL/UL Urine RBC 51-100 H (0-2) /hpf Urine WBC 0-5 (0-3) /hpf Ur Squamous Epith Cells Many H (Few) /hpf Urine Bacteria 4+ H /hpf Urine Casts 3-5 Urine Mucus Present /lpf POC Urine HCG, Qual Negative (Negative) Discharge Plan Discharge Clinical Impression: Right upper quadrant abdominal pain Patient Disposition: Home Condition: Stable Instructions: Antibiotic Form, Abdominal Pain (ED) Additional Instructions: It is recommended that you avoid fatty and greasy foods as well as spicy foods. Please follow-up with your primary care provider if he continued to have symptoms you also may need to see General surgery Patient Language: Georgian Prescriptions: New hydrocodone-acetaminophen 5-325 mg tablet 1 tablet PO Q6H PRN (Reason: pain) 3 Days Qty: 12 0RF dicyclomine 20 mg tablet 20 mg PO QID PRN (Reason: abdominal discomfort) Qty: 20 0RF ondansetron 4 mg tablet,disintegrating 4 mg PO Q8H PRN (Reason: nausea and vomiting) Qty: 10 0RF No Action alprazolam 1 mg tablet 1 mg PO DIRECTED escitalopram oxalate 20 mg tablet 20 mg PO DAILY Follow-up/Referrals: Crow Fried MD [Primary Care Provider] - Serafin Jones DO [Physician] - Time of Disposition: 10:49
[2024-10-09] MEDS: SODIUM CHLORIDE 0.9% IV 1,000 ML 999 ML IV CONT (07:40)
[2024-10-09 07:41] LABS: BEDSIDEPREGUCG Negative (Negative)
[2024-10-09] MEDS: ONDANSETRON INJ 4 MG/2 ML VIAL IV PUSH (07:41)
[2024-10-09] MEDS: MORPHINE SULFATE (*CRX) 4 MG/ML INJ IV PUSH (07:43)
[2024-10-09 07:47] VITALS: BP 124/88; PULSE 84; RESP 20; TEMP 36.9; O2SAT 95
[2024-10-09 07:50] LABS: Basophils Percent Auto 0.5 % (0.2-1.2); Eosinophils Absolute Auto 0.2 K/mm3 (0-0.3); Eosinophils Percent Auto 2.3 % (0-4.4); Hematocrit 43.1 % (37.0-47.0); Hemoglobin 14.3 g/dL (12.0-15.0); Immature Granulocyte Absolute 0.01 K/mm3 (0.00-0.031); Immature Granulocyte Percent A 0.2 % (0-0.5); Lymphocytes Absolute Auto 2.36 K/mm3 (0.9-3.2); Lymphocytes Percent Auto 36.4 % (18.3-44.2); Mean Corpuscular HGB Conc 33.2 g/dl (32-36); Mean Corpuscular Hemoglobin 32.7 pg (26-34); Mean Corpuscular Volume 98.6 fl (80-100); Mean Platelet Volume 9.5 fl (7.4-10.4); Monocytes Absolute Auto 0.5 K/mm3 (0.1-0.6); Monocytes Percent Auto 7.7 % (2.6-8.5); Neutrophils Absolute Auto 3.4 K/mm3 (1.3-6.7); Neutrophils Percent Auto 52.9 % (45.5-73.1); Platelet Count Result 247 k/mm3 (150-375); Red Blood Count 4.37 M/mm3 (4.2-5.4); Red Cell Distribution Width 12.2 % (11.5-14.5); White Blood Count 6.5 K/mm3 (4.5-10.0)
[2024-10-09 08:03] LABS: Alanine Aminotransferase 25 U/L (6-35); Albumin Level 4.8 g/dL (3.5-5.1); Alkaline Phosphatase 77 U/L (38-126); Anion Gap 10 mmol/L (4-12); Aspartate Amino Transferase 31 U/L (14-36); Bilirubin,Total 0.9 mg/dL (0.2-1.3); Blood Urea Nitrogen 6 mg/dL (7-17); Calcium 9.3 mg/dL (8.4-10.2); Carbon Dioxide 29 mmol/L (22-30); Chloride 100 mmol/L (98-107); Estimated CRCL calculation 102 ml/min; Estimated Glomerular Filt Rate > 60; Glucose 110 mg/dL (65-110); Lipase 31 U/L (23-300); Potassium 3.7 mmol/L (3.4-5.0); Sodium 139 mmol/L (137-145)
[2024-10-09 08:07] LABS: Add Urine Microscopic? YES; Appearance Urine Cloudy (Clear); Bacteria Urine 4+ /hpf; Bilirubin Urine Negative (Negative); Blood Urine 3+ (Negative); Color Urine Dark Yellow (Yellow); Glucose Urine UA Negative (Negative); Ketones Urine 4+ mg/dL (Negative); Leukocyte Esterase Ur Negative LEU/UL (Negative); Mucus Urine Present /lpf; Need Manual Microscopic Reviewed; Nitrate Urine Negative (Negative); Protein Urine Trace mg/dL (Negative); RBC Urine 51-100 /hpf (0-2); Squamous Epithelial Cell Urine Many /hpf (Few); WBC Urine 0-5 /hpf (0-3)
[2024-10-09 08:40] VITALS: BP 124/86; PULSE 68; RESP 16; O2SAT 97
[2024-10-09] MEDS: HYDROmorphone HCL INJ (*CRX) 1 MG/ML SYR IV PUSH (08:55)
--- NOTE | 2024-10-09 09:27 | ECG_ITS ---
Test Date: 2024-10-09 09:42:38 Measurements Intervals [place] Rate: 55 P: 34 DE: 140 QRS: 29 QRSD: 80 T: 1 QT: 417 QTc: 400 Interpretive Statements SINUS BRADYCARDIA MINIMAL Q WAVES- HIGH LATERAL LEADS NONSPECIFIC T-WAVE ABNORMALITY- ANT/INF LEADS BASELINE ARTIFACT- I, II, III, AVR, AVL, AVF, V1-V2 BORDERLINE ECG No previous ECG available for comparison Electronically Signed On 10-09-2024 09:56:44 CDT by Mihir Page D.O.
[2024-10-09 09:54] LABS: Troponin I < 0.012 ng/mL (0.000-0.034)
[2024-10-09 10:32] VITALS: BP 126/79; PULSE 60; RESP 20; O2SAT 100
[2024-10-09 11:10] VITALS: BP 118/77; PULSE 64; RESP 18; O2SAT 99
== END 2024-10-09 11:11 | disposition home or self-care (01) ==
PROVIDERS: Emergency Provider Emergency Medicine; PCP Family Medicine
DX: R10.11 Right upper quadrant pain (principal); F17.200 Nicotine dependence, unspecified, uncomplicated; Z79.899 Other long term (current) drug therapy
CPT/HCPCS: 36415; 71275; 76705; 80053; 81001; 81025; 83690; 84484; 85025; 93005; 96361; 96374; 96375; 99284; J1171; J2270; J2405; J7030; Q9967